=== PATIENT | male | born 1990 | race Caucasian/White ===

== ENCOUNTER 2020-05-07 14:14 | Emergency (ER) | payer OTHER ==
--- NOTE | 2020-05-07 15:35 | RAD ---
XR Knee Lt 4 View STANDARD: 05/07/2020 2:27 PM CLINICAL INDICATION: Fall with left knee pain COMPARISON: None. FINDINGS: Bones: There is a mildly displaced 8 mm bone fragment from the anterolateral margin of the tibia rolanda picious for Segond fracture. Joints: There is a moderate joint capsular distention.. Soft Tissue: No acute abnormality.. IMPRESSION: Mildly displaced bone fragment from the anterolateral margin of the lateral tibial plateau suspicious for Segond fracture. This can be associated with ACL injuries. Recommend correlation for ACL insufficiency. Follow-up nonemergent MRI of the left knee may be helpful. There is moderate joint cap sular distention..
--- NOTE | 2020-05-07 15:37 | RAD ---
XR Ankle Lt 3 View STANDARD INDICATION: Left ankle injury COMPARISON: None. FINDINGS: Bones: There is a mildly displaced spiral fracture involving the lateral malleolus. Ankle mortise: Symmetric. Talar Dome: Intact. Subtalar joint: Normal. Visualized hindfoot: Normal. Periarticular soft tissues: Normal. IMPRESSION: 1. Mildly displaced spiral fracture of the lateral malleolus.
== END 2020-05-07 16:38 | disposition home or self-care (01) ==
LOC: ERS 14:14
DX: S82.62XA Displaced fracture of lateral malleolus of left fibula, initial encounter for closed fracture (principal); S90.02XA Contusion of left ankle, initial encounter; W01.0XXA Fall on same level from slipping, tripping and stumbling without subsequent striking against object, initial encounter